=== PATIENT | female | born 1940 | race Caucasian/White ===

== ENCOUNTER 2018-05-08 11:22 | Inpatient (IN) ==
[2018-05-08] MEDS ORDERED: SODIUM CHLORIDE 0.9% 1,000 ML IV STA (11:54)
[2018-05-08] MEDS ORDERED: ONDANSETRON 4 MG/2 ML VIAL IV STA (11:54)
[2018-05-08] MEDS ORDERED: MORPHINE 4 MG/1 ML VIAL IV STA ×3 (11:54→13:23)
[2018-05-08] MEDS ORDERED: ASPIRIN 325 MG TABLET PO STA (11:54)
[2018-05-08 12:21] LABS: Basophils % 0.4 % (0.0-0.8); Eosinophils % 0.4 % (0.00-10.9); Hematocrit 34.1 VOL% (35.7-47.0); Immature Granulocytes % 0.5 %; Immature Granulocytes Absolute 0.04 #; Lymphocytes # 1.3 10*3/uL (1.4-4.0); Lymphocytes % 16.7 % (21.3-54.2); Mean Corpuscular HGB Conc 32.3 GM/DL (32-36); Mean Corpuscular Hemoglobin 30 PG (27-34); Mean Corpuscular Volume 93.4 FL (87-102); Monocytes # 0.5 10*3/uL (0.11-0.8); Monocytes % 5.8 % (1.7-12.7); Neutrophils % 76.2 % (38.7-73.9); Platelet Count 154 T/CUMM (130-400); Red Blood Count 3.65 MC/CUMM (3.8-5.5); Red Cell Distribution Width 12.5 % (9.3-17.3); White Blood Count 7.8 T/CUMM (4-12)
[2018-05-08 12:31] LABS: INR 1.1; PT Patient Result 11.9 SECS; Partial Thromboplastin Time 23.2 SECS (0-40)
[2018-05-08 12:48] LABS: Alanine Aminotransferase 18 U/L (13-56); Albumin 2.7 G/DL (3.4-5.0); Alkaline Phosphatase 37 U/L (45-117); Aspartate Amino Transferase 10 U/L (0-37); Bilirubin,Total < 0.39 MG/DL (0.2-1.0); Blood Urea Nitrogen 14 MG/DL (7-18); Calcium 7.7 MG/DL (8.5-10.1); Glucose 248 MG/DL (74-106); Osmolality,Calculated 287.4 MOS/KG (273-304); Potassium 3.8 MMOL/L (3.5-5.1); Sodium 140 MMOL/L (136-145); Total Protein 5.1 G/DL (6.4-8.3)
[2018-05-08] MEDS ORDERED: LIDOCAINE 1% 20 ML VIAL ONE (14:40)
[2018-05-08] MEDS ORDERED: HEPARIN/NACL 0.9% 2 UNITS/ML 1,500 ML IV ONE (14:40)
[2018-05-08] MEDS ORDERED: MIDAZOLAM 2 MG/2 ML VIAL ONE (14:40)
[2018-05-08] MEDS ORDERED: fentaNYL 100 MCG/2 ML VIAL ONE (14:45)
[2018-05-08] MEDS ORDERED: BIVALIRUDIN 250 MG VIAL IV ONE (15:08)
[2018-05-08] MEDS ORDERED: DOPamine 0 MG/0 ML PREMIX IV ONE (15:31)
[2018-05-08] MEDS ORDERED: PHENYLEPHRINE 50 MG/5 ML VIAL ONE (15:33)
[2018-05-08] MEDS ORDERED: HEPARIN/NACL 0.9% 2 UNITS/ML 500 ML IV ONE (15:40)
[2018-05-08] MEDS ORDERED: CLOPIDOGREL 300 MG TABLET ONE (15:42)
[2018-05-08] MEDS ORDERED: ATROPINE 1 MG/10 ML SYRINGE ONE (15:52)
[2018-05-08] MEDS ORDERED: fentaNYL 100 MCG/2 ML VIAL IV PRN (16:13)
[2018-05-08] MEDS ORDERED: ONDANSETRON 4 MG/2 ML VIAL IV PRN (16:13)
[2018-05-08] MEDS ORDERED: NITROGLYCERIN SL 0.4 MG TABLET SL PRN (16:13)
[2018-05-08] MEDS ORDERED: ACETAMINOPHEN 325 MG TABLET PO PRN (16:13)
[2018-05-08 17:47] LABS: CKMB % 9.8 %
[2018-05-08 17:50] LABS: Troponin I Only 2.58 NG/ML (0.00-0.045)
[2018-05-08] MEDS: SODIUM CHLORIDE 0.45% 1,000 ML IV SCH ×2 (17:53→22:50)
[2018-05-08] MEDS: ZALEPLON 5 MG CAPSULE PO PRN (21:38)
[2018-05-08] MEDS: diphenhydrAMINE CAP 50 MG CAPSULE PO PRN (21:38)
[2018-05-08] MEDS: ATORVASTATIN 40 MG TABLET PO SCH (21:38)
[2018-05-09 01:49] LABS: Basophils % 0.3 % (0.0-0.8); Eosinophils % 0.3 % (0.00-10.9); Hematocrit 33.3 VOL% (35.7-47.0); Hemoglobin 10.7 GM/DL (12.0-16.0); Immature Granulocytes % 0.2 %; Immature Granulocytes Absolute 0.02 #; Lymphocytes # 2.5 10*3/uL (1.4-4.0); Lymphocytes % 23.6 % (21.3-54.2); Mean Corpuscular HGB Conc 32.1 GM/DL (32-36); Mean Corpuscular Hemoglobin 30 PG (27-34); Mean Corpuscular Volume 92.2 FL (87-102); Mean Platelet Volume 11.8 FL (9.6-12.0); Monocytes # 0.8 10*3/uL (0.11-0.8); Monocytes % 7.5 % (1.7-12.7); Neutrophils # 7.2 10*3/uL (1.4-7.4); Neutrophils % 68.1 % (38.7-73.9); Platelet Count 134 T/CUMM (130-400); Red Blood Count 3.61 MC/CUMM (3.8-5.5); Red Cell Distribution Width 12.8 % (9.3-17.3); White Blood Count 10.6 T/CUMM (4-12)
[2018-05-09 02:28] LABS: Calcium 7.8 MG/DL (8.5-10.1); Osmolality,Calculated 280.7 MOS/KG (273-304); Potassium 3.8 MMOL/L (3.5-5.1); Risk Ratio 3.83; VLDL CHOLESTEROL 39.4 MG/DL
[2018-05-09 02:34] LABS: CKMB % 9.6 %
[2018-05-09 02:37] LABS: Troponin I Only 77.8 NG/ML (0.00-0.045)
[2018-05-09] MEDS: SODIUM CHLORIDE 0.45% 1,000 ML IV SCH (06:17)
[2018-05-09] MEDS: PANTOPRAZOLE 40 MG TABLET PO SCH (08:26)
[2018-05-09] MEDS: ASPIRIN 325 MG TABLET PO SCH (08:26)
[2018-05-09] MEDS: CLOPIDOGREL 75 MG TABLET PO SCH (08:26)
[2018-05-09] MEDS: ENOXAPARIN 40 MG/0.4 ML SYRINGE SUBCUT SCH (11:12)
[2018-05-09] MEDS: INSULIN REGULAR 100 UNIT/ML SUBCUT SCH ×3 (11:18→20:08)
[2018-05-09 11:22] LABS: CKMB % 7.6 %
[2018-05-09 11:28] LABS: Troponin I Only 57.5 NG/ML (0.00-0.045)
[2018-05-09] MEDS: ATORVASTATIN 40 MG TABLET PO SCH (20:07)
[2018-05-09] MEDS: ZALEPLON 5 MG CAPSULE PO PRN (21:55)
[2018-05-09] MEDS: oxyCODONE/ACETAMINOPHEN 5-325 MG TABLET PO PRN (21:55)
[2018-05-10 04:46] LABS: Basophils % 0.3 % (0.0-0.8); Eosinophils # 0.1 10*3/uL (0.0-0.87); Eosinophils % 1.5 % (0.00-10.9); Hematocrit 34.3 VOL% (35.7-47.0); Hemoglobin 11.5 GM/DL (12.0-16.0); Immature Granulocytes % 0.5 %; Immature Granulocytes Absolute 0.04 #; Lymphocytes # 2.7 10*3/uL (1.4-4.0); Lymphocytes % 30.4 % (21.3-54.2); Mean Corpuscular HGB Conc 33.5 GM/DL (32-36); Mean Corpuscular Hemoglobin 30 PG (27-34); Mean Platelet Volume 12.5 FL (9.6-12.0); Monocytes # 0.8 10*3/uL (0.11-0.8); Monocytes % 8.9 % (1.7-12.7); Neutrophils # 5.2 10*3/uL (1.4-7.4); Neutrophils % 58.4 % (38.7-73.9); Platelet Count 130 T/CUMM (130-400); Red Blood Count 3.81 MC/CUMM (3.8-5.5); Red Cell Distribution Width 12.8 % (9.3-17.3); White Blood Count 8.9 T/CUMM (4-12)
[2018-05-10 05:04] LABS: Calcium 8.6 MG/DL (8.5-10.1); Potassium 3.8 MMOL/L (3.5-5.1)
[2018-05-10] MEDS: CLOPIDOGREL 75 MG TABLET PO SCH (09:19)
[2018-05-10] MEDS: ASPIRIN 325 MG TABLET PO SCH (09:19)
[2018-05-10] MEDS: PANTOPRAZOLE 40 MG TABLET PO SCH (09:19)
[2018-05-10] MEDS: diphenhydrAMINE CAP 50 MG CAPSULE PO PRN ×2 (09:19→21:07)
[2018-05-10] MEDS: oxyCODONE/ACETAMINOPHEN 5-325 MG TABLET PO PRN ×2 (09:20→22:42)
[2018-05-10] MEDS: INSULIN REGULAR 100 UNIT/ML SUBCUT SCH ×4 (11:38→21:07)
[2018-05-10] MEDS: ENOXAPARIN 40 MG/0.4 ML SYRINGE SUBCUT SCH (15:31)
[2018-05-10] MEDS ORDERED: HYDROCORTISONE 1% CREAM 28 GM TUBE TOP PRN (17:42)
[2018-05-10] MEDS: ATORVASTATIN 40 MG TABLET PO SCH (21:07)
[2018-05-10] MEDS: METOPROLOL TARTRATE 25 MG TABLET PO SCH (21:07)
[2018-05-11 04:49] LABS: Basophils # 0.1 10*3/uL (0.0-0.2); Basophils % 0.6 % (0.0-0.8); Eosinophils # 0.3 10*3/uL (0.0-0.87); Eosinophils % 3.2 % (0.00-10.9); Hematocrit 35.9 VOL% (35.7-47.0); Hemoglobin 11.6 GM/DL (12.0-16.0); Immature Granulocytes % 0.3 %; Immature Granulocytes Absolute 0.03 #; Lymphocytes # 2.6 10*3/uL (1.4-4.0); Lymphocytes % 28.5 % (21.3-54.2); Mean Corpuscular HGB Conc 32.3 GM/DL (32-36); Mean Corpuscular Hemoglobin 30 PG (27-34); Mean Corpuscular Volume 92.5 FL (87-102); Mean Platelet Volume 12.8 FL (9.6-12.0); Monocytes # 0.8 10*3/uL (0.11-0.8); Monocytes % 9.2 % (1.7-12.7); Neutrophils # 5.2 10*3/uL (1.4-7.4); Neutrophils % 58.2 % (38.7-73.9); Platelet Count 140 T/CUMM (130-400); Red Blood Count 3.88 MC/CUMM (3.8-5.5); Red Cell Distribution Width 12.6 % (9.3-17.3)
[2018-05-11 05:12] LABS: Calcium 8.8 MG/DL (8.5-10.1); Osmolality,Calculated 287.1 MOS/KG (273-304); Potassium 4.1 MMOL/L (3.5-5.1)
[2018-05-11] MEDS ORDERED: MAGNESIUM SULF RIDER 2 GM in PREMIX 1 EACH IV PRN (06:06)
[2018-05-11] MEDS: METOPROLOL TARTRATE 25 MG TABLET PO SCH (08:54)
[2018-05-11] MEDS: INSULIN REGULAR 100 UNIT/ML SUBCUT SCH ×2 (08:54→12:49)
[2018-05-11] MEDS: PANTOPRAZOLE 40 MG TABLET PO SCH (08:54)
[2018-05-11] MEDS: diphenhydrAMINE CAP 50 MG CAPSULE PO PRN (08:54)
[2018-05-11] MEDS: ASPIRIN 325 MG TABLET PO SCH (08:54)
[2018-05-11] MEDS: CLOPIDOGREL 75 MG TABLET PO SCH (08:54)
[2018-05-11] MEDS ORDERED: HYDROCORTISONE 2.5% CREAM 30 GM TUBE TOP PRN (12:01)
[2018-05-11 12:45] VITALS: BP 131/67
[2018-05-11] MEDS: ENOXAPARIN 40 MG/0.4 ML SYRINGE SUBCUT SCH (13:39)
== END 2018-05-11 14:35 | disposition home or self-care (01) | DRG 247 ==
LOC: N.ED 11:22 → N.CC 14:51 → N.EDINP 16:13 → N.CC 16:40 → N.TELES 05-09 15:52
PROVIDERS: ADMIT Internal Medicine Cardiovascular Disease; ATTEND Internal Medicine Cardiovascular Disease
PROC: CLCCHCL (ICD-10-PCS; 2018-05-08 15:15)